=== PATIENT | female | born 1985 | race Two or more races ===

== ENCOUNTER 2021-03-02 15:00 | Outpatient (CLI) | payer OTHER ==
[2021-03-02] MEDS ORDERED: ULTRACET PO (19:07)
[2021-03-02] MEDS ORDERED: NASAL MIST126 ML (23:31)
== END 2021-03-02 15:34 | disposition home or self-care (01) ==
LOC: RAD 15:00
PROVIDERS: ATTEND Physical Medicine & Rehabilitation
DX: M54.5 Low back pain (principal)

== ENCOUNTER 2021-03-02 17:42 | Emergency (ER) | payer OTHER ==
[~2021-03-02] VITALS: Ht 170.2 cm; Wt 63.5 kg
[2021-03-02] MEDS ORDERED: ULTRACET PO (19:07)
[2021-03-02] MEDS ORDERED: NASAL MIST126 ML (23:31)
== END 2021-03-02 19:14 | disposition home or self-care (01) ==
LOC: ER 17:42
DX: L05.91 Pilonidal cyst without abscess (principal)

== ENCOUNTER 2021-03-05 09:16 | Outpatient (CLI) | payer OTHER ==
[~2021-03-05 09:16] MED LIST: NASAL MIST126 ML; ULTRACET PO
[2021-03-06] MEDS ORDERED: AMOXICILLIN125 MG (19:16)
[2021-03-06] MEDS ORDERED: PERCOCET 5-3251 EACH PO (20:31)
== END 2021-03-05 10:00 | disposition home or self-care (01) ==
LOC: TOM 09:16
PROVIDERS: ATTEND Physical Medicine & Rehabilitation
DX: M54.5 Low back pain (principal); G54.4 Lumbosacral root disorders, not elsewhere classified

== ENCOUNTER 2021-03-06 18:34 | Emergency (ER) | payer OTHER ==
[~2021-03-06] VITALS: Ht 170.2 cm; Wt 63.5 kg
[2021-03-06] MEDS ORDERED: AMOXICILLIN125 MG (19:16)
[2021-03-06] MEDS ORDERED: PERCOCET 5-3251 EACH PO (20:31)
== END 2021-03-06 20:44 | disposition home or self-care (01) ==
LOC: ER 18:34
DX: L05.01 Pilonidal cyst with abscess (principal)

== ENCOUNTER 2021-08-31 08:23 | Outpatient (CLI) | payer OTHER ==
[~2021-08-31 08:23] MED LIST changes: +AMOXICILLIN125 MG; +PERCOCET 5-3251 EACH PO
== END 2021-08-31 08:26 | disposition home or self-care (01) ==
LOC: LAB 08:23
PROVIDERS: ATTEND Obstetrics & Gynecology
DX: E04.1 Nontoxic single thyroid nodule (principal); R10.84 Generalized abdominal pain; A92.8 Other specified mosquito-borne viral fevers; Z34.00 Encounter for supervision of normal first pregnancy, unspecified trimester

== ENCOUNTER 2021-09-11 09:47 | Outpatient (CLI) | payer OTHER | END 2021-09-11 09:57 | disposition home or self-care (01) | LOC: SONOGRAMA 09:47 | PROVIDERS: ATTEND Internal Medicine Gastroenterology | DX: R16.0 Hepatomegaly, not elsewhere classified (principal); R94.5 Abnormal results of liver function studies ==

== ENCOUNTER 2021-09-11 10:22 | Outpatient (CLI) | payer OTHER | END 2021-09-11 15:00 | disposition home or self-care (01) | LOC: LAB 10:22 | PROVIDERS: ATTEND Internal Medicine Gastroenterology | DX: R94.5 Abnormal results of liver function studies (principal) ==

== ENCOUNTER 2025-01-19 13:54 | Emergency (ER) | payer OTHER ==
[~2025-01-19] VITALS: Ht 170.2 cm; Wt 68.0 kg
[2025-01-19 17:28] LABS: BASO % 0.4 % (0.1-1.2); EOS # 0.21 (0.04-0.54); EOS % 2.1 % (0.7-7.0); HEMATOCRIT 39.8 % (34.1-44.9); HEMOGLOBIN 13.1 g/dL (11.2-15.7); LYMPH # 2.72 (1.18-3.74); LYMPH % 26.9 % (19.3-53.1); MEAN CORPUSCULAR HEMOGLOBIN 28.6 pg (25.6-32.2); MONO % 6.9 % (4.7-12.5); NEUT # 6.41 (1.56-6.13); NEUT % 63.4 % (34.0-71.1); PLATELET COUNT 320 K/uL (163-369); RED BLOOD COUNT 4.58 M/uL (3.93-5.22); RED CELL DISTRIBUTION WIDTH 12.4 % (11.6-14.4)
[2025-01-19 18:17] LABS: ALBUMIN 3.7 gm/dL (3.4-5.0); BILIRUBIN TOTAL 0.31 mg/dL (0.3-1.2); CALCIUM 8.5 mg/dL (8.5-10.1); CREATININE SERUM 0.76 mg/dL (0.55-1.02); GFR 85.63; GLOBULINA 3.7 G/DL (2.4-3.5); POTASSIUM 3.76 mEq/L (3.5-5.1); TOTAL PROTEIN 7.4 gm/dL (6.4-8.2)
[2025-01-19] MEDS ORDERED: ORPHENADRINE CITRATE 30 MG/ML AMPUL IM STA (19:11)
== END 2025-01-19 20:56 | disposition home or self-care (01) ==
LOC: ER 14:09
PROVIDERS: Preventive Medicine Public Health & General Preventive Medicine
DX: R07.89 Other chest pain (principal); Z88.6 Allergy status to analgesic agent; Z91.013 Allergy to seafood